=== PATIENT | female | born 1930 | race Caucasian/White ===

== ENCOUNTER 2018-12-17 13:43 | Inpatient (IN) ==
[2018-12-17 14:07] LABS: ABG Base Excess -0.7 mmol/L (-2.4-2.3); ABG HCO3 22.9 mmhg (22.0-26.0); ABG Oxygen Saturation 89 % (90-100); ABG PCO2 31.9 mmhg (35.0-45.0); ABG PH 7.47 mmol/L (7.35-7.45); ABG PO2 57.9 mmhg (80-100); ABG TCO2 23.9 mmhg (23-27)
[2018-12-17 14:09] LABS: Allen's Test Acceptable; Oxygen 100 %
--- NOTE | 2018-12-17 14:32 | Electrocardiograph Report ---
APPROVED REPORT Exam: Resting ECG HR:101 bpm ECG Measurements Heart Rate 101 AXES QRSd 122 QRS -65 QT 354 T84 QTc 459 <Conclusion> Atrial fibrillation with rapid ventricular response with premature ventricular or aberrantly conducted complexes old poor r wave progression Abnormal ECG Electronically signed by : Carson Cross, 12/17/2018 14:32:29
[2018-12-17 14:43] LABS: Basophils % 0.2 % (0.1-2.0); Eosinophils % 0.2 % (0.1-12.0); Hematocrit 43.6 % (37.0-47.0); Hemoglobin 14.4 g/dL (12.2-16.2); Lymphocytes # 0.9 K/mm3 (0.7-4.5); Lymphocytes % 11.1 % (10-50); Mean Corpuscular HGB Conc 33.1 g/dL (31.8-35.4); Mean Corpuscular Volume 91.7 fl (81-99); Mean Platelet Volume 7.9 fl (7.4-10.4); Monocytes # 0.6 K/mm3 (0.1-1.0); Monocytes % 7.6 % (1.7-9.3); Neutrophils # 6.6 K/mm3 (1.8-7.8); Neutrophils % 80.8 % (37.0-80.0); Platelet Count 237 K/mm3 (142-424); Red Blood Count 4.76 M/mm3 (4.20-5.40); Red Cell Distribution Width 13.9 % (11.5-17.5); White Blood Count 8.2 K/mm3 (4.8-10.8)
[2018-12-17 15:02] LABS: Alanine Aminotransferase 26 U/L (12-78); Albumin Level 3.6 gm/dL (3.4-5.0); Alkaline Phosphatase 76 U/L (46-116); Anion Gap 16.1 mEq/L (5-15); Aspartate Amino Transferase 30 U/L (15-37); Bilirubin,Total 1.6 mg/dL (0.2-1.0); Blood Urea Nitrogen 23 mg/dL (7-18); Calcium 9.2 mg/dL (8.5-10.1); Carbon Dioxide 23 mmol/L (21.0-32.0); Chloride 91 mmol/L (98-107); Globulin 3.6 gm/dl (1.3-3.2); Glucose 143 mg/dL (74-106); Sodium 126 mmol/L (136-145); Total Protein,Serum 7.2 gm/dL (6.4-8.2)
[2018-12-17 16:53] LABS: Microscopic, Urine URINE MICROSCOPIC (MICROSCOPIC)
[2018-12-17 16:56] LABS: Appearance,Urine CLEAR (Clear); Bilirubin,Urine Negative (Negative); Blood, Urine Negative (Negative); Color,Urine YELLOW (Yellow); Glucose,Urine (UA) Negative (Negative); Ketones,Urine 1+ (Negative); Leukocyte Esterase,Urine Negative (Negative); Protein,Urine 1+ (Negative); Urobilinogen,Urine 0.2 EU/dl (0.2)
--- NOTE | 2018-12-17 17:09 | Emergency Department Note ---
ED Disposition Clinical Impression: Congestive heart failure, Community acquired pneumonia, Hyponatremia Disposition: Admitted As Inpatient Condition on Discharge: Serious - Critical Care Critical Care Time: Yes Attestation: On 12/17/18, the high probability of a clinically significant, sudden or life threatening deterioration of the following system(s) required my full and direct attention, intervention and personal management. The time I documented below is in addition to time spent performing reported procedures but includes the following listed in this critical care notation. Vital system(s) involved:: Respiratory Failure My critical care processes included: Assessment & monitoring of V/S, Initial and Re-exams Medical Decision Making - Medical Records Medical records reviewed: Yes: I reviewed the patient's medical records. - José Inquiry Pt receiving controlled substance: No Vital Signs: 12/17/18 13:43 12/17/18 14:18 12/17/18 14:46 Temperature 98.0 F Temperature Source Temporal Artery Scan Pulse Rate [Right Radial] 95 H 103 H 105 H Respiratory Rate 18 Blood Pressure [Right Arm] 142/88 H 140/82 155/116 H Blood Pressure Mean [Right Arm] 106 101 129 Blood Pressure Source [Right Arm] Automatic Cuff Automatic Cuff Blood Pressure Position [Right Arm] Sitting Sitting Sitting 02 Sat by Pulse Oximetry 91 L 91 L 93 L Oxygen Delivery Method Non-Rebreather Non-Rebreather Non-Rebreather Oxygen Flow Rate (LPM) 15 10 12/17/18 15:18 12/17/18 16:13 12/17/18 16:35 Temperature Temperature Source Pulse Rate [Right Radial] 104 H 120 H 109 H Respiratory Rate 24 Blood Pressure [Right Arm] 140/78 143/83 H 128/68 Blood Pressure Mean [Right Arm] 98 103 88 Blood Pressure Source [Right Arm] Automatic Cuff Automatic Cuff Automatic Cuff Blood Pressure Position [Right Arm] Sitting Sitting Sitting 02 Sat by Pulse Oximetry 90 L 88 L 94 L Oxygen Delivery Method Non-Rebreather Non-Rebreather BiPAP Oxygen Flow Rate (LPM) 12/17/18 17:07 Temperature Temperature Source Pulse Rate [Right Radial] 104 H Respiratory Rate Blood Pressure [Right Arm] 117/71 Blood Pressure Mean [Right Arm] 86 Blood Pressure Source [Right Arm] Automatic Cuff Blood Pressure Position [Right Arm] Sitting 02 Sat by Pulse Oximetry 96 Oxygen Delivery Method BiPAP Oxygen Flow Rate (LPM) - Lab Data Lab Results 12/17/18 13:45: Specimen Source Right radial, O2 % 100, ABG pH 7.47 H, ABG pCO2 31.9 L, ABG pO2 57.9 L, ABG HCO3 22.9, ABG Total CO2 23.9, ABG O2 Saturation 89 L, ABG Base Excess -0.7, Vamsi Test Acceptable 12/17/18 14:29: WBC 8.2, RBC 4.76, Hgb 14.4, Hct 43.6, MCV 91.7, MCH 30.4, MCHC 33.1, RDW 13.9, Plt Count 237, MPV 7.9, Neut % (Auto) 80.8 H, Lymph % (Auto) 11.1, [place] % (Auto) 7.6, Eos % (Auto) 0.2, Baso % (Auto) 0.2, Neut # (Auto) 6.6, Lymph # (Auto) 0.9, [place] # (Auto) 0.6, Eos # (Auto) 0.0, Baso # (Auto) 0.0 12/17/18 14:29: Sodium 126 L, Potassium 4.1, Chloride 91 L, Carbon Dioxide 23, Anion Gap 16.1 H, BUN 23 H, Creatinine 0.63, Estimated Creat Clear 36, Estimated GFR 89, Est GFR ( Amer) 108, Glucose 143 H, Calcium 9.2, Total Bilirubin 1.6 H, AST 30, ALT 26, Alkaline Phosphatase 76, Troponin I < 0.02, Total Protein 7.2, Albumin 3.6, Globulin 3.6 H, Albumin/Globulin Ratio 1.0 L 12/17/18 14:29: Lactate 1.3 12/17/18 14:29: B-Natriuretic Peptide 1330 H 12/17/18 16:08: Urine Color Yellow, Urine Appearance Clear, Urine pH 6.0, Ur Specific [place] 1.020, Urine Protein 1+, Urine Glucose (UA) Negative, Urine Ketones 1+, Urine Blood Negative, Urine Nitrate Negative, Urine Bilirubin Negative, Urine Urobilinogen 0.2, Ur Leukocyte Esterase Negative Result diagrams: 12/17/18 14:29 12/17/18 14:29 Orders (Tests/Meds): ED MEDICATIONS Discontinued Medications Generic Name Dose Route Start Last Admin Trade Name Freq PRN Reason Stop Dose Admin Albuterol/Ipratropium 3 ml 12/17/18 13:48 12/17/18 13:49 Duoneb 3ml Neb IH 12/17/18 13:49 3 ml ONCE ONE Administration Furosemide 40 mg 12/17/18 16:09 12/17/18 16:09 Lasix 40mg/4ml Vial IV 12/17/18 16:10 40 mg ONCE ONE Administration Furosemide 40 mg 12/17/18 17:07 12/17/18 17:22 Lasix 40mg/4ml Vial IV 12/17/18 17:08 40 mg ONCE ONE Administration Ceftriaxone Sodium 1 gm/ 50 mls @ 100 mls/hr 12/17/18 16:31 12/17/18 16:44 Sodium Chloride IV 12/17/18 17:00 100 mls/hr ONCE ONE Administration Protocol Azithromycin 500 mg/ Sodium 250 mls @ 250 mls/hr 12/17/18 16:31 12/17/18 17:22 Chloride IV 12/17/18 16:32 250 mls/hr ONCE ONE Administration Protocol Lorazepam 0.5 mg 12/17/18 16:17 12/17/18 16:25 Ativan 2mg/Ml Vial IV 12/17/18 16:18 0.5 mg ONCE ONE Administration Methylprednisolone Sodium Succinate 125 mg 12/17/18 13:48 12/17/18 13:49 Solu-Medrol 125mg/2ml Vial IV 12/17/18 13:49 125 mg ONCE ONE Administration ORDERS Category Date Time Status Urinalysis and Microscopic Stat Lab 12/17/18 16:08 Results Blood Culture Stat Micro 12/17/18 14:29 Received Resp/SOB HPI - General Chief Complaint: Shortness of Breath/Dyspnea Stated Complaint: SOA Time Seen by Provider: 12/17/18 13:50 Mode of Arrival: EMS Source of Information: Patient, EMS Limitations: No Limitations Description of Symptoms (Recalled from ER Triage Doc. by RN): Pt c/o SOA x2 days. Pt family friend was at pts home, states pt began increasingly SOA and got very clammy prior to calling EMS. Pt reports she saw her PCP yesterday and had a chest xray as an outpt. Pt family friend reports pt was recently d/c from hospice "a couple months ago" states pt was hospice r/t pneumonia, states at that time pt was on oxygen at night. States pt is no longer on oxygen - History of Present Illness MD Complaint: shortness of breath, cough, anxiety Context: recent illness Severity: severe Consistency/Duration: constant Relieving factors: nothing Exacerbating factors: exertion Known history of: congestive heart failure Associated symptoms: cough, wheezing Treatment prior to arrival: oxygen - Related Data Home Medications Medication Instructions Recorded Confirmed amlodipine 5 mg tablet 5 mg PO QDAY 05/21/17 12/17/18 aspirin 81 mg tablet,delayed 81 mg PO QDAY 05/21/17 12/17/18 release atenolol 100 mg tablet 100 mg PO BID 90 Days tab 05/21/17 12/17/18 biotin 1,000 mcg chewable tablet mcg PO 05/21/17 11/21/18 chlordiazepoxide-clidinium 5 1 cap PO BID 05/21/17 12/17/18 mg-2.5 mg capsule cholecalciferol (vitamin D3) 1,000 1,000 unit PO ONCE 05/21/17 11/21/18 unit capsule fluticasone propionate 50 50 mcg INTRANASAL ONCE 05/21/17 11/21/18 mcg/actuation nasal spray,suspension furosemide 20 mg tablet 40 mg PO DAILY 90 Days tab 05/21/17 12/17/18 multivitamin tablet 1 tab PO QAM 05/21/17 12/17/18 polyethylene glycol 3350 17 17 g PO BID 90 Days each 05/21/17 12/17/18 gram/dose oral powder warfarin 5 mg tablet 5 mg PO QDAY 05/21/17 12/17/18 Allergies Allergy/AdvReac Type Severity Reaction Status Date / Time From PACERONE Allergy Intermediate I-RASH Uncoded 11/12/18 08:11 LISINOPRIL Allergy Intermediate I-RASH Uncoded 11/12/18 08:11 SULFA (SULFONAMIDE) Allergy Intermediate I-RASH Uncoded 11/12/18 08:11 Cefaclor Allergy Unknown Uncoded 11/12/18 08:11 IBUPROFEN AdvReac Unknown CHEST PAIN Uncoded 11/12/18 08:11 [facility] History - Hepatitis A Screen Drug use history?: No High risk sexual behaviors?: No History of sexually transmitted infection?: No Currently employed?: No Childcare worker?: No Do you have indoor plumbing?: Yes Do you have electricity?: Yes Attestation statement:: This patient has been screened for Hepatitis A risk factors. Medical History: Reports:: Anxiety, Arrhythmia, Atrial Fibrillation, Cancer, Coronary Artery Disease, Diabetes Mellitus Type 2, Gastroesophageal Reflux Disease(GERD), Hyperlipidemia, Hypertension, Osteoporosis Denies:: Aneurysm, Congestive Heart Failure, Chronic Obstructive Pulmonary Disease (COPD), Cerebrovascular Accident, Diabetes Mellitus Type 1, Myocardial Infarction, Renal Disease, Renal Insufficiency Other Medical History: Reports: Arthritis, Cataracts, Glaucoma, Osteoporosis Laterality Cases: Left: Lumpectomy Other Surgeries: Yes: No Previous Surgery, Hysterectomy-Total Amputation: No Fractures: No - Social History Smoking Status: Never smoker Alcohol Intake: never Alcohol Intake Frequency:: other Substance Use Type: denies use Occupational Status: retired Housing: house Household Members: family - Psychiatric History Pschychiatric History:: Reports:: Anxiety Family Hx:: Cancer, Diabetes, Heart Attack, Hyperlipidemia, Hypertension, Stroke, Thyroid Disorder ROS Obtained: Yes Systems reviewed as appropriate & no additional complaints - Constitutional Constitutional: Reports fatigue, Reports malaise - Eyes Eyes: Reports system reviewed and no additional complaints, except as docu - ENT Ears, Nose, Mouth, and Throat: Reports system reviewed and no additional complaints, except as docu - Cardiovascular Cardiovascular: Denies chest pain, Denies leg pain with activity, Denies leg edema, Reports shortness of breath when lying down - Respiratory Respiratory: Yes chest congestion, Yes non-productive cough, Yes dyspnea, Yes wheezing - Gastrointestinal Gastrointestingal: Reports: system reviewed and no additional complaints, except as docu - Musculoskeletal Musculoskeletal: Reports system reviewed and no additional complaints, except as docu - Integumentary/Breasts Skin/Breast: Reports system reviewed and no additional complaints, except as docu - Neurologic Neurologic: Denies abnormal speech, Denies behavioral changes, Denies confusion, Denies convulsions, Denies dizziness, Denies headache(s), Denies loss of vision, Denies seizure-like activity, Denies syncope, Denies vertigo - Endocrine Endocrine: Reports system reviewed and no additional complaints, except as docu Physical Exam - General General appearance: alert, in distress - Head Head exam: atraumatic - Eye Eye exam: Present: normal appearance, PERRL, EOMI - ENT ENT exam: Present: normal exam, mucous membranes moist - Neck Neck exam: Present: normal inspection, full ROM, trachea midline - Chest Chest inspection: Present: normal inspection, symmetric chest wall rise - Respiratory Respiratory exam: Present: respiratory distress, wheezes, accessory muscle use - Cardiovascular Cardiovascular exam: Present: regular rate, irregular rhythm, normal heart sounds - Abdominal Exam Abdominal exam: Present: soft, normal bowel sounds. Absent: distention, tenderness - Neurological Exam Neurological exam: Present: alert, oriented X3, CN II-XII intact. Absent: motor sensory deficit - Psychiatric Psychiatric exam: Present: normal affect, normal mood - Skin Skin exam: Present: warm, dry, intact - Lymphatic Lymphatic Findings: no adenopathy
[2018-12-17 17:17] LABS: INR 5.8 (0.9-1.1); Prothrombin Time 55.5 seconds (9.4-11.8)
[2018-12-17 17:29] LABS: WBC,Urine Occasional #/hpf (0-3)
[2018-12-17 17:30] LABS: Bacteria,Urine Trace /lpf; Mucus,Urine Trace /lpf
--- NOTE | 2018-12-18 07:09 | Pharmacy Consult Notes ---
[facility] Pharmacy VTE Monitoring - Patient Demographics Admission date: 12/18/18 Report Date: 12/18/18 Time: 07:09 Allergies/Adverse Reactions: Patient Allergies From PACERONE Allergy (Intermediate, Uncoded 11/12/18 08:11) I-RASH LISINOPRIL Allergy (Intermediate, Uncoded 11/12/18 08:11) I-RASH SULFA (SULFONAMIDE) Allergy (Intermediate, Uncoded 11/12/18 08:11) I-RASH Cefaclor Allergy (Unknown, Uncoded 11/12/18 08:11) IBUPROFEN Adverse Reaction (Unknown, Uncoded 11/12/18 08:11) CHEST PAIN Height: 1.45 m Weight: 59.903 kg Patient Problems: Current Active Problems Congestive heart failure (Acute) Community acquired pneumonia (Acute) Hyponatremia (Acute) - VTE Risk Labs: VTE Related Lab Results Hgb 14.4 g/dL (12.2-16.2) 12/17/18 14:29 Hct 43.6 % (37.0-47.0) 12/17/18 14:29 Plt Count 237 K/mm3 (142-424) 12/17/18 14:29 PT 55.5 seconds (9.4-11.8) H 12/17/18 16:48 INR 5.80 (0.9-1.1) H 12/17/18 16:48 BUN 23 mg/dL (7-18) H 12/17/18 14:29 Creatinine 0.63 mg/dL (0.55-1.02) 12/17/18 14:29 Estimated Creat Clear 36 mL/min (50-200) 12/17/18 14:29 Was VTE Risk Assessment Performed: Yes VTE Score: 4 VTE Risk Level: Low Risk Clinical Trial Participant: No - Prophylaxis VTE Prophylaxis Ordered?: Yes Types of VTE Prophylaxis: TEDS Knee High
--- NOTE | 2018-12-18 08:24 | History & Physical Report ---
*Admission Date: 12/18/18 *Chief complaint: Shortness of air and cough *History of present illness: 88-year-old white female with history of chronic atrial fibrillation, systolic and diastolic chronic CHF, whom I saw in the office on December 16 who was complaining of some shortness of air and was found to have low oxygen saturations. She had recently been discharged from hospice care because of CHF because of improvement and improving oxygenation status, but in the office was found to have saturations in the high 80% that were normalized with the initiation of oxygen therapy. She was placed on higher dose Lasix and discharged home, chest x-ray revealed the presence of increased pulmonary vascular but no infiltrate. Unfortunately, she failed to improve and came back to the emergency department late yesterday evening with cough, shortness of air and was found to have evidence of infiltrate as well as worsening CHF status, admitted to hospital with IV antibiotics, IV diuresis and on BiPAP therapy. This morning she is alert, talkative, and wishes to get the BiPAP off. [facility] History I have reviewed the patient's past medical history: Yes Medical History: Reports:: Anxiety, Arrhythmia, Atrial Fibrillation, Cancer, Coronary Artery Disease, Gastroesophageal Reflux Disease(GERD), Hyperlipidemia, Hypertension, Osteoporosis Denies:: Aneurysm, Congestive Heart Failure, Chronic Obstructive Pulmonary Disease (COPD), Cerebrovascular Accident, Diabetes Mellitus Type 1, Diabetes Mellitus Type 2, Myocardial Infarction, Renal Disease, Renal Insufficiency *Have you ever received a pneumonia vaccine?: Yes *Have you received a flu vaccine this season?: Yes Other Medical History: Reports: Arthritis, Cataracts, Glaucoma, Osteoporosis Laterality Cases: Left: Lumpectomy Other Surgeries: Yes: No Previous Surgery, Hysterectomy-Total Amputation: No Fractures: No - *Social History Smoking Status: Never smoker Alcohol Intake: never Alcohol Intake Frequency:: other Substance Use Type: denies use *Occupational Status:: retired Housing: house Household Members: family *Travel in the last 8 weeks: None - Psychiatric History Expresses thoughts of harming self/others: None Suicide Plan Description: No Plan Pschychiatric History:: Reports:: Anxiety Family Hx:: Cancer, Diabetes, Heart Attack, Hyperlipidemia, Hypertension, Stroke, Thyroid Disorder Review of Systems - Review of Systems Review of systems:: unable to obtain - *Neurologic Denies abnormal speech, Denies behavioral changes, Denies confusion, Denies seizure-like activity, Denies dizziness, Denies headache(s), Denies loss of vision, Denies seizure-like activity, Denies fainting, Denies dizziness Meds Home Medications Medication Instructions Recorded Confirmed Type amlodipine 5 mg tablet 5 mg PO QDAY 05/21/17 12/17/18 History aspirin 81 mg tablet,delayed 81 mg PO QDAY 05/21/17 12/17/18 History release atenolol 100 mg tablet 100 mg PO BID 90 Days tab 05/21/17 12/17/18 History biotin 1,000 mcg chewable tablet mcg PO 05/21/17 11/21/18 History chlordiazepoxide-clidinium 5 1 cap PO BID 05/21/17 12/17/18 History mg-2.5 mg capsule cholecalciferol (vitamin D3) 1,000 1,000 unit PO ONCE 05/21/17 11/21/18 History unit capsule fluticasone propionate 50 50 mcg INTRANASAL ONCE 05/21/17 11/21/18 History mcg/actuation nasal spray,suspension furosemide 20 mg tablet 40 mg PO DAILY 90 Days tab 05/21/17 12/17/18 History multivitamin tablet 1 tab PO QAM 05/21/17 12/17/18 History polyethylene glycol 3350 17 17 g PO BID 90 Days each 05/21/17 12/17/18 History gram/dose oral powder warfarin 5 mg tablet 5 mg PO QDAY 05/21/17 12/17/18 History Allergies Allergy/AdvReac Type Severity Reaction Status Date / Time amiodarone [From Pacerone] Allergy Intermediate Rash Verified 12/18/18 08:03 cefaclor Allergy Intermediate Rash Verified 12/18/18 08:03 lisinopril Allergy Intermediate Rash Verified 12/18/18 08:03 Sulfa (Sulfonamide Allergy Intermediate Rash Verified 12/18/18 08:03 Antibiotics) ibuprofen AdvReac Unknown Chest Pain Verified 12/18/18 08:03 Exam Vital signs and Labs for Last 24 Hours: Temp Pulse Resp BP Pulse Ox 97.8 F 94 H 20 119/56 L 98 12/18/18 03:53 12/18/18 03:53 12/18/18 03:53 12/18/18 03:53 12/18/18 03:53 Laboratory Results - last 24 hr 12/17/18 13:45: Specimen Source Right radial, O2 % 100, ABG pH 7.47 H, ABG pCO2 31.9 L, ABG pO2 57.9 L, ABG HCO3 22.9, ABG Total CO2 23.9, ABG O2 Saturation 89 L, ABG Base Excess -0.7, Vamsi Test Acceptable 12/17/18 14:29: WBC 8.2, RBC 4.76, Hgb 14.4, Hct 43.6, MCV 91.7, MCH 30.4, MCHC 33.1, RDW 13.9, Plt Count 237, MPV 7.9, Neut % (Auto) 80.8 H, Lymph % (Auto) 11.1, [place] % (Auto) 7.6, Eos % (Auto) 0.2, Baso % (Auto) 0.2, Neut # (Auto) 6.6, Lymph # (Auto) 0.9, [place] # (Auto) 0.6, Eos # (Auto) 0.0, Baso # (Auto) 0.0 12/17/18 14:29: Sodium 126 L, Potassium 4.1, Chloride 91 L, Carbon Dioxide 23, Anion Gap 16.1 H, BUN 23 H, Creatinine 0.63, Estimated Creat Clear 36, Estimated GFR 89, Est GFR ( Amer) 108, Glucose 143 H, Calcium 9.2, Total Bilirubin 1.6 H, AST 30, ALT 26, Alkaline Phosphatase 76, Troponin I < 0.02, Total Protein 7.2, Albumin 3.6, Globulin 3.6 H, Albumin/Globulin Ratio 1.0 L 12/17/18 14:29: Lactate 1.3 12/17/18 14:29: B-Natriuretic Peptide 1330 H 12/17/18 16:08: Urine Color Yellow, Urine Appearance Clear, Urine pH 6.0, Ur Specific [place] 1.020, Urine Protein 1+, Urine Glucose (UA) Negative, Urine Ketones 1+, Urine Blood Negative, Urine Nitrate Negative, Urine Bilirubin Negative, Urine Urobilinogen 0.2, Ur Leukocyte Esterase Negative, Urine WBC Occasional, Urine Bacteria Trace, Urine Mucus Trace 12/17/18 16:48: PT 55.5 H, INR 5.80 H I & O for Last 24 hours: Intake & Output 12/15/18 12/16/18 12/17/18 12/18/18 11:59 11:59 11:59 11:59 Intake Total 120 / 120 Output Total 2600 / 2600 Balance -2480 / -2480 Weight 132 lb 1 oz Narrative: Patient on BiPAP. Appears comfortable. Has diuresed well in the [place] catheter. Air movement is apparently improved over ER exam. Heart rate irregular. Abdomen soft and nontender. Wearing BiPAP and is alert, more talkative. No perfusion deficits, minimal 1+ ankle edema. No JVD. ENT exam otherwise clear. Assessment and Plan (1) Community acquired pneumonia Current visit: Yes Status: Acute Category: Medical Code(s): J18.9 - Pneumonia, unspecified organism Agree with admission for IV antibiotics. (2) Congestive heart failure Current visit: Yes Status: Acute Category: Medical Code(s): I50.9 - Heart failure, unspecified Continue BiPAP, aggressive IV diuresis. Possibly will need repeat hospice evaluation. (3) Hyponatremia Current visit: Yes Status: Acute Category: Medical Code(s): E87.1 - Hypo- osmolality and hyponatremia Check BMP today, follow labs closely. (4) Atrial fibrillation Current visit: Yes Status: Acute Category: Medical Code(s): I48.91 - Unspecified atrial fibrillation Patient's INR is high, hold this today. In my opinion patient should not continue to be on warfarin given her fall risk.
[2018-12-18 09:28] LABS: Anion Gap 14.6 mEq/L (5-15); Calcium 8.7 mg/dL (8.5-10.1)
[2018-12-19 07:23] LABS: Eosinophils % 0.1 % (0.1-12.0); Hematocrit 37.7 % (37.0-47.0); Hemoglobin 12.3 g/dL (12.2-16.2); Lymphocytes # 0.5 K/mm3 (0.7-4.5); Lymphocytes % 4.1 % (10-50); Mean Corpuscular HGB Conc 32.7 g/dL (31.8-35.4); Mean Platelet Volume 6.9 fl (7.4-10.4); Monocytes # 0.8 K/mm3 (0.1-1.0); Monocytes % 6.6 % (1.7-9.3); Neutrophils # 10.6 K/mm3 (1.8-7.8); Neutrophils % 89.2 % (37.0-80.0); Platelet Count 356 K/mm3 (142-424); Red Blood Count 4.06 M/mm3 (4.20-5.40); Red Cell Distribution Width 14.1 % (11.5-17.5); White Blood Count 11.9 K/mm3 (4.8-10.8)
[2018-12-19 07:25] LABS: Anion Gap 10.6 mEq/L (5-15); Calcium 8.6 mg/dL (8.5-10.1)
[2018-12-19 08:43] LABS: Lymphocytes % 5 % (10-50); Monocytes % 6 % (2-9); Neutrophils % 84 % (42-76); Total Cells Counted 100
[2018-12-19 08:44] LABS: RBC Morphology Normal
--- NOTE | 2018-12-19 13:58 | Progress Note ---
Internal Medicine - PN: Subj *Date: 12/19/18 *Time: 08:55 Interval history: Mrs. Negron continues to struggle respiratorily. Has been unable to be off BiPAP for longer than 15 to 20 minutes. Ate breakfast this morning but became very dyspneic with decrease in oxygen saturation to the mid 70s without BiPAP support (85% FiO2). Denies chest pain, nausea vomiting, confusion;shortness of breath remains prominent symptom and complaint. Complains of fatigue. Exam Vital signs and Labs for Last 24 Hours: Temp Pulse Resp BP Pulse Ox 98.1 F 103 H 16 139/90 95 12/19/18 08:00 12/19/18 08:00 12/19/18 08:00 12/19/18 08:00 12/19/18 10:10 Laboratory Results - last 24 hr 12/19/18 07:05: WBC 11.9 H D, RBC 4.06 L, Hgb 12.3, Hct 37.7, MCV 93.0, MCH 30.4, MCHC 32.7, RDW 14.1, Plt Count 356 D, MPV 6.9 L, Neut % (Auto) 89.2 H, Lymph % (Auto) 4.1 L, [place] % (Auto) 6.6, Eos % (Auto) 0.1, Baso % (Auto) 0.0 L, Neut # (Auto) 10.6 H, Lymph # (Auto) 0.5 L, [place] # (Auto) 0.8, Eos # (Auto) 0.0, Baso # (Auto) 0.0, Total Counted 100, Neutrophils % (Manual) 84 H, Band Neutrophils % 3.0, Lymphocytes % (Manual) 5 L, Atypical Lymphs % 2.0, Monocytes % (Manual) 6, Platelet Estimate Normal, RBC Morphology Normal 12/19/18 07:05: Sodium 133 L, Potassium 3.6, Chloride 98, Carbon Dioxide 28, Anion Gap 10.6, BUN 25 H D, Creatinine 0.64, Estimated Creat Clear 36, Estimated GFR 87, Est GFR ( Amer) 106, Glucose 149 H D, Calcium 8.6 I & O for Last 24 hours: Intake & Output 12/16/18 12/17/18 12/18/18 12/19/18 23:59 23:59 23:59 23:59 Intake Total 480 / 480 120 / 120 Output Total 2099 / 2099 1350 / 1350 1200 / 1200 Balance -2100 / -2100 -870 / -870 -1080 / -1080 Weight 60.951 kg 59.903 kg 59.903 kg Microbiology Reports for the Last 24 Hours: Microbiology 12/17/18 14:29 Blood Blood Culture - Preliminary Narrative: Patient remains in respiratory distress on BiPAP with FiO2 of 85%, resting comfortably in bed Early in place, trace edema or entheses interval improvement) Air movement is fair with bilevel support Heart rate irregular, systolic murmur prominent Abdomen soft and nontender, normoactive bowel sounds Wearing BiPAP and is alert, trying to talk through BiPAP mask, difficult to understand. No perfusion deficits ABD present, ENT exam otherwise clear. Assessment and Plan (1) Community acquired pneumonia Current visit: Yes Status: Acute Category: Medical Code(s): J18.9 - Pneumonia, unspecified organism (2) Congestive heart failure Current visit: Yes Status: Acute Category: Medical Code(s): I50.9 - Heart failure, unspecified (3) Hyponatremia Current visit: Yes Status: Acute Category: Medical Code(s): E87.1 - Hypo- osmolality and hyponatremia (4) Atrial fibrillation Current visit: Yes Status: Acute Category: Medical Code(s): I48.91 - Unspecified atrial fibrillation (5) Severe aortic stenosis Current visit: Yes Status: Chronic Category: Medical Code(s): I35.0 - Nonrheumatic aortic (valve) stenosis (6) Diastolic dysfunction with acute on chronic heart failure Current visit: Yes Status: Acute Category: Medical Code(s): I50.33 - Acute on chronic diastolic (congestive) heart failure - Assessment and plan all Dx Assessment and Plan for all problems:: Overall the patient is in very tenuous condition. She remains in respiratory failure suspected due to right-sided pneumonia exacerbating her diastolic CHF in the setting of severe aortic stenosis. Patient continuing to require BiPAP for adequate oxygenation. Long discussion with family this morning about patient's clinical status and poor prognosis. At this time we are continuing antibiotics and addressing her fluid status with diuresis. Continue support for respiratory failure with BiPAP. No desire to escalate care further with intubation. Discussed with patient that I am worried if she does not turnaround in the next 24 to 48 hours that we are looking at a terminal diagnosis. She states understanding. If no improvement or ability to de-escalate oxygen support, would plan for hospice consultation and transition from aggressive curative therapy to aggressive comfort care. Patient critically ill DNR
[2018-12-20 07:43] LABS: Basophils % 0.1 % (0.1-2.0); Eosinophils # 0.1 K/mm3 (0.0-0.4); Eosinophils % 0.5 % (0.1-12.0); Hematocrit 38.7 % (37.0-47.0); Hemoglobin 12.4 g/dL (12.2-16.2); Lymphocytes # 0.5 K/mm3 (0.7-4.5); Lymphocytes % 3.9 % (10-50); Mean Corpuscular HGB Conc 31.9 g/dL (31.8-35.4); Mean Corpuscular Volume 94.3 fl (81-99); Mean Platelet Volume 7.6 fl (7.4-10.4); Monocytes # 0.9 K/mm3 (0.1-1.0); Monocytes % 7.6 % (1.7-9.3); Neutrophils # 10.8 K/mm3 (1.8-7.8); Neutrophils % 87.8 % (37.0-80.0); Platelet Count 307 K/mm3 (142-424); Red Cell Distribution Width 14.1 % (11.5-17.5); White Blood Count 12.3 K/mm3 (4.8-10.8)
[2018-12-20 07:49] LABS: INR 3.04 (0.9-1.1)
[2018-12-20 07:51] LABS: Anion Gap 10.7 mEq/L (5-15); Calcium 8.5 mg/dL (8.5-10.1)
[2018-12-20 07:53] LABS: ABG Base Excess 0.4 mmol/L (-2.4-2.3); ABG HCO3 22.7 mmhg (22.0-26.0); ABG Oxygen Saturation 86 % (90-100); ABG PCO2 26.2 mmhg (35.0-45.0); ABG TCO2 23.5 mmhg (23-27)
[2018-12-20 08:07] LABS: Allen's Test Non Applicable; Oxygen 85% %
[2018-12-20 08:08] LABS: ABG PH 7.56 mmol/L (7.35-7.45); ABG PO2 48.6 mmhg (80-100)
[2018-12-20 08:26] LABS: Lymphocytes % 6 % (10-50); Monocytes % 3 % (2-9); Neutrophils % 91 % (42-76); Total Cells Counted 100
[2018-12-20 08:27] LABS: RBC Morphology Normal
--- NOTE | 2018-12-20 09:12 | Progress Note ---
Internal Medicine - PN: Subj *Date: 12/20/18 *Time: 13:50 Interval history: Patient has continued to decline clinically overnight. Continued on BiPAP. Concern for tachypnea on BiPAP for over ventilation. Blood gas obtained this morning confirming this with onset of respiratory alkalosis. Transition to nonrebreather with less ideal oxygenation in the high 70s to low 80s. Patient's condition has become more tenuous. Conversation with family at bedside, decision made to transition to hospice care and focus on comfort addressing anxiety and air hunger. Patient minimally responsive on exam this morning, groans to verbal stimuli but no meaningful interaction. Exam Vital signs and Labs for Last 24 Hours: Temp Pulse Resp BP Pulse Ox 97.7 F 90 40 H 133/75 89 L 12/20/18 04:00 12/20/18 06:32 12/20/18 08:38 12/20/18 04:00 12/20/18 06:32 Laboratory Results - last 24 hr 12/20/18 07:24: PT 30.0 H, INR 3.04 H 12/20/18 07:24: WBC 12.3 H, RBC 4.10 L, Hgb 12.4, Hct 38.7, MCV 94.3, MCH 30.1, MCHC 31.9, RDW 14.1, Plt Count 307, MPV 7.6, Neut % (Auto) 87.8 H, Lymph % (Auto) 3.9 L, [place] % (Auto) 7.6, Eos % (Auto) 0.5, Baso % (Auto) 0.1, Neut # (Auto) 10.8 H, Lymph # (Auto) 0.5 L, [place] # (Auto) 0.9, Eos # (Auto) 0.1, Baso # (Auto) 0.0, Total Counted 100, Neutrophils % (Manual) 91 H, Lymphocytes % (Manual) 6 L, Monocytes % (Manual) 3, Platelet Estimate Normal, RBC Morphology Normal 12/20/18 07:24: Sodium 137, Potassium 3.7, Chloride 101, Carbon Dioxide 29, Anion Gap 10.7, BUN 23 H, Creatinine 0.55, Estimated Creat Clear 36, Estimated GFR 104, Est GFR ( Amer) 126, Glucose 112 H, Calcium 8.5, Magnesium 2.0 12/20/18 07:30: Specimen Source Right brachial, O2 % 85%, ABG pH 7.56 H*, ABG pCO2 26.2 L, ABG pO2 48.6 L, ABG HCO3 22.7, ABG Total CO2 23.5, ABG O2 Saturation 86 L*, ABG Base Excess 0.4, Vamsi Test Non applicable, Vent Rate 14, Tidal Volume bipap 15/8 I & O for Last 24 hours: Intake & Output 12/17/18 12/18/18 12/19/18 12/20/18 23:59 23:59 23:59 23:59 Intake Total 480 / 480 540 / 540 121 / 121 Output Total 2099 / 2099 1350 / 1350 2800 / 2800 400 / 400 Balance -2099 / -2099 -870 / -870 -2260 / -2260 -279 / -279 Weight 60.951 kg 59.903 kg 59.903 kg 60.384 kg Microbiology Reports for the Last 24 Hours: Microbiology 12/17/18 14:29 Blood Blood Culture - Preliminary Gram Positive Cocci 12/17/18 14:29 Blood Blood Culture - Preliminary NO GROWTH AFTER 48 HOURS Narrative: Patient remains in respiratory distress on nonrebreather with 100% FiO2, in bed on exam trace edema Air movement is fair with bilateral crackles. Heart rate irregular, systolic murmur prominent Abdomen soft and nontender, normoactive bowel sounds Obtunded, groan to verbal stimuli cyanosis of finger tips. Assessment and Plan (1) Community acquired pneumonia Current visit: Yes Status: Acute Category: Medical Code(s): J18.9 - Pneumonia, unspecified organism (2) Congestive heart failure Current visit: Yes Status: Acute Category: Medical Code(s): I50.9 - Heart failure, unspecified (3) Hyponatremia Current visit: Yes Status: Acute Category: Medical Code(s): E87.1 - Hypo- osmolality and hyponatremia (4) Atrial fibrillation Current visit: Yes Status: Acute Category: Medical Code(s): I48.91 - Unspecified atrial fibrillation (5) Severe aortic stenosis Current visit: Yes Status: Chronic Category: Medical Code(s): I35.0 - Nonrheumatic aortic (valve) stenosis (6) Diastolic dysfunction with acute on chronic heart failure Current visit: Yes Status: Acute Category: Medical Code(s): I50.33 - Acute on chronic diastolic (congestive) heart failure - Assessment and plan all Dx Assessment and Plan for all problems:: Critically ill patient with no response so far to antibiotics for her pneumonia. Continues to have worsening respiratory failure in the setting of diastolic heart failure and severe aortic stenosis. Patient's tenuous condition is not improving. Discussion with family today with decision to transition focus to comfort rather than curative measures given worsening distress. Necessity to stop BiPAP due to worsening respiratory alkalosis and no clinical improvement. Will transition care to treating her air hunger and anxiety. Ativan and morphine as prescribed. Hospice consulted. Given critically ill status, anticipate hours to days with the eminent. Patient DNR.
--- NOTE | 2018-12-20 14:14 | Death Note ---
Pronouncement Note - Date and Time of Date of : 12/20/18 Time of : 14:07 - PCOD Preliminary cause of : Cardiac arrest - Additional Data Confirmation of : no pulse Family: at bedside Attending/PCP notified?: Yes Attending physician: Carson Cross MD Was code activated?: No Autopsy requested?: No land leasing examiner notified?: No Organ bank notified?: Yes Advance directives: Yes
--- NOTE | 2018-12-20 14:16 | Death Note ---
Discharge Sum: Prov - Provider Primary care physician: Carson Cross MD Visit Care Team Role Provider Type Rosales No MD Emergency Provider ER Physician Carson Cross MD Admit Provider Staff Physician Attending Provider Primary Care Provider Admitting clinician: Carson Cross Consults: 12/20/18 10:12 Care Management Consult [Consult to Case Management] [CONS] Routine Reason For Consult: Hospice consult Pronouncing clinician: Rolando Mckeon Discharge Sum: Diag - PCOD Cause of : Cardiac arrest Discharge Sum: Summary - Date and Time Date of admission: 12/17/18 18:14 Date of : 12/20/18 Time of : 14:07 - Hospital Course prior to Hospital Course Information: Mr. Negron was admitted with hypoxemic respiratory failure secondary to pneumonia, CHF exacerbation, aortic insufficiency. She was started on antibiotics including ceftriaxone and azithromycin along with aggressive respiratory support consisting of BiPAP and oxygen. Echocardiogram was obtained showing poor right-sided function with elevated right ventricular pressures, severe aortic stenosis. Chest imaging performed showing right-sided pneumonia. She showed no improvement over the course of her admission however had worsening respiratory alkalosis and respiratory distress. This led to discussions with family about goals of care and decision was made to transition her care to hospice and focus on comfort as opposed to curative measures. She was transitioned to morphine and Ativan for anxiety and respiratory distress. ultimately went into complete respiratory failure and from her illness. She had family at bedside through her course of treatment. - Summary Details: Cardiac arrest in the setting of right-sided pneumonia exacerbating heart failure with reduced ejection fraction and right-sided dysfunction concurrent with aortic insufficiency. - Additional Data Confirmation of as documented by pronouncing clinician: no pulse Family: at bedside Attending/PCP notified?: Yes Attending physician: Carson Cross MD Was code activated?: No Autopsy requested?: No cigar packing examiner notified?: Yes Organ bank notified?: Yes Advance directives: Yes Hospice patient?: Yes
== END 2018-12-20 17:40 | disposition expired | DRG 193 ==
LOC: ER 13:43 → 2ND 16:47
PROVIDERS: ADMIT Internal Medicine Adolescent Medicine; ATTEND Internal Medicine Adolescent Medicine
CPT/HCPCS: 36415; 71010; 71020; 71045; 71046; 80048; 80053; 81001; 82803; 83605; 83735; 83880; 84484; 85007; 85025; 85610; 87040; 87077; 93005; 93306; 94640; 94660; 94667; 94761; 96365; 96375; 96376; 99285; J0456